=== PATIENT | male | born 1995 | race Two or more races ===

== ENCOUNTER 2019-09-06 15:43 | Emergency (ER) | payer OTHER ==
[~2019-09-06] VITALS: Ht 172.7 cm; Wt 72.6 kg
[2019-09-06 16:54] VITALS: BP 122/75
[2019-09-06] MEDS ORDERED: IBUPROFEN 800 MG TAB PO ONE (17:15)
== END 2019-09-06 18:54 | disposition home or self-care (01) ==
LOC: ER 15:50
DX: S29.011A Strain of muscle and tendon of front wall of thorax, initial encounter (principal); V43.62XA Car passenger injured in collision with other type car in traffic accident, initial encounter; Y93.89 Activity, other specified; Y99.8 Other external cause status; Y92.410 Unspecified street and highway as the place of occurrence of the external cause
CPT/HCPCS: 71101